=== PATIENT | male | born 2005 | race Two or more races ===

== ENCOUNTER → 2024-09-04 | Outpatient (CLI) | payer MEDICAID, SELFPAY ==
--- NOTE | 2024-09-04 16:00 | XR_ITS ---
Examination: Ultrasound soft tissue back TECHNIQUE: Bay scale sonographic images soft tissue lower back Exam date and time: 2024, 1624 hours INDICATIONS: Palpable lump left lower back note is beginning to months ago FINDINGS: Isoechoic soft tissue mass at the area of concern, 1.2 x 0.6 x 1.1 cm IMPRESSION: Probable soft tissue lipoma at the area of concern, recommend six-month follow-up ultrasound soft tissue left lower back
== END | disposition home or self-care (01) ==
LOC: CDIM 15:50
PROVIDERS: PCP Physician Assistant
DX: M54.42 Lumbago with sciatica, left side (principal)
CPT/HCPCS: 76705